=== PATIENT | female | born 1965 | race Caucasian/White ===

== ENCOUNTER 2020-07-09 11:59 | Inpatient (IN) | payer MEDICARE, MEDICAID, SELFPAY ==
[2020-07-09] VITALS (19 sets, daily range): BP systolic 120–139; BP diastolic 64–86; PULSE 71–107; RESP 16–28; TEMP 36.5–36.6; O2SAT 95–100
--- NOTE | ~2020-07-09 | XR_ITS ---
EXAMINATION: XR chest 1V portable DATE: 07/09/2020 13:10 INDICATION: Shortness of breath. Wheezing. TECHNIQUE: A single frontal view of the chest was obtained. COMPARISON: None. FINDINGS: There are airspace opacities in the peripheral mid and lower lung zones. No pleural effusio n or pneumothorax. Cardiomegaly is noted. IMPRESSION: 1. Airspace opacities in the peripheral mid and lower lung zones, consistent with pneumonia. 2. Cardiomegaly. Reviewed, dictated and finalized at location A. SS SPECIALIST IMPRESSION: 1. Airspace opacities in the peripheral mid and lower lung zones, consistent wi th pneumonia. 2. Cardiomegaly.
--- NOTE | ~2020-07-09 | US_ITS ---
EXAMINATION: US venous doppler [facility] DATE: 07/10/2020 08:40 INDICATION: Lower limb pain. TECHNIQUE: Grayscale ultrasound images without and with compression and Doppler ultrasound images of the bilateral lower extremity veins were obtained. COMPARISON: None. FINDINGS: The visualized portions of right common femoral vein, profunda (deep) femoral vein, femoral vein, pop liteal vein, peroneal veins, posterior tibial veins, and greater saphenous vein outflow are patent. The visualized portions of left common femoral vein, profunda femoral vein, femoral vein, popliteal v ein, peroneal veins, posterior tibial veins, and greater saphenous vein outflow are patent. IMPRESSION: 1. No deep venous thrombosis. Reviewed, dictated and finalized at location A. IAGE OPERATOR
--- NOTE | 2020-07-09 12:40 | ECG_ITS ---
Measurements Intervals [place] Rate: 77 P: 31 CO: 167 QRS: -17 QRSD: 91 T: 32 QT: 365 QTc: 414 Interpretive Statements SINUS RHYTHM VOLTAGE CRITERIA FOR LVH BASELINE ARTIFACT- I, II, AVR, AVL, AVF BORDERLINE ECG Electronically Signed On 07-09-2020 13:10:45 [employer]ERMENTING CELLAR [employer]OPPER by Randy Rosenthal D.O.
--- NOTE | 2020-07-09 12:42 | ED.SOB ---
HPI - SOB/Dyspnea General Chief Complaint: Shortness of Breath/Dyspnea Stated Complaint: SOB, ?COVID EXPOSURE Time Seen by Provider: 07/09/20 12:18 Source: patient Mode of arrival: ambulatory Limitations: no limitations History of Present Illness HPI Narrative: PAtient is a 55 year old female with history of asthma and hypertension who presents for evaluation of shortness of breath. She states starting 07/03/20 she developed URI symptoms. She is having sinus congestion and cough. She started having worsening shortness of breath, cough, and midchest tightness 3 days. She reports her chest tightness is constant and it is getting worse daily. She denies fever or chills. She denies vomiting or diarrhea. She reports her is sick with URI symptoms and he was tested for covid yesterday. His results are unknown at this time. She has been using her albuterol nebulizer every few hours , and she reports improvement of her symptoms. She spoke with her synthetic resin operator who referred her to to get evaluated. Related Data Home Medications Medication Instructions Recorded Confirmed albuterol sulfate 2.5 mg INHALATION PRN PRN 07/09/20 07/09/20 amlodipine 10 mg PO DAILY 07/09/20 07/09/20 baclofen 10 mg PO TID 07/09/20 07/09/20 budesonide-formoterol [Symbicort] 2 puff INHALATION PRN PRN 07/09/20 07/09/20 fluticasone propionate 50 mcg INTRANASAL PRN PRN 07/09/20 07/09/20 gabapentin 300 mg PO BID 07/09/20 07/09/20 hydrochlorothiazide 25 mg PO DAILY 07/09/20 07/09/20 multivitamin 1 tablet PO DAILY 07/09/20 07/09/20 naproxen 1,000 mg PO BID 07/09/20 07/09/20 omeprazole 20 mg PO DAILY 07/09/20 07/09/20 ropinirole 1 mg PO BID 07/09/20 07/09/20 simvastatin 40 mg PO DAILY 07/09/20 07/09/20 tiotropium bromide [Spiriva 2 puff INHALATION PRN PRN 07/09/20 07/09/20 Respimat] venlafaxine 150 mg PO BID 07/09/20 07/09/20 Allergies Allergy/AdvReac Type Severity Reaction Status Date / Time No Known Allergies Allergy Verified 07/09/20 17:12 Review of Systems Review of Systems: All systems reviewed & are unremarkable except as noted in HPI and below PMFSH Past Medical History Medical History (Updated 07/09/20 @ 17:56 by Raven Dias MD) Anxiety Asthma Hypertension Surgical History Surgical History (Updated 07/09/20 @ 12:46 by Raven Dias MD) No pertinent past surgical history Social History Social History (Updated 07/09/20 @ 12:47 by Raven Dias MD) Smoking status: Former smoker Alcohol intake: never Substance use: never Gender identity (if verbalized by the patient): Female Exam Const: General: alert and ill appearing Orientation/consciousness: patient oriented x3 Eyes: EOM: EOMs intact bilaterally Chest: Chest palpation & inspection: normal inspection of the chest Resp: Effort & Inspection: tachypneic and no use of accessory muscles Auscultation: wheezes Cardio: Rate: regular rate Rhythm: regular rhythm Heart sounds: no murmurs GI: GI Palp: Yes Soft to palpation, No Tenderness to palpation present (GI) and No Guarding due to palpation present (GI) Skin: General skin exam: normal color Rashes: no rashes Neuro: General: patient oriented x3 and moves all extremities Course Reevaluation(s) Reevaluation #1: She reported she felt better so I got patient up to check her ambulatory oxygenations. although her oxygen maintained 95% . she was tachypneic and wheezing upon standing. Date: 07/09/20 Time: 14:00 Consultations Consultation #1: I discussed case with Aida Cross. She accepts patient to hospitalist service. Date: 07/09/20 Time: 14:25 Vital Signs Vital signs: Vital Signs Pulse Rate 89 07/09/20 12:11 Respiratory Rate 19 07/09/20 12:11 Blood Pressure 130/79 07/09/20 12:11 Pulse Oximetry 100 07/09/20 12:11 Temperature 97.9 F 07/09/20 17:00 Pulse Rate 87 07/09/20 17:00 Respiratory Rate 22 H 07/09/20 17:00 Blood Pressure 129/69 07/09/20 1
[2020-07-09 13:00] LABS: Basophils Percent Auto 0.3 % (0.2-1.2); Hematocrit 40.5 % (37.0-47.0); Hemoglobin 13.5 g/dL (12.0-15.0); Immature Granulocyte Absolute 0.06 K/mm3 (0.00-0.031); Immature Granulocyte Percent A 0.9 % (0-0.5); Lymphocytes Absolute Auto 2.05 K/mm3 (0.9-3.2); Lymphocytes Percent Auto 29.5 % (18.3-44.2); Mean Corpuscular HGB Conc 33.3 g/dl (32-36); Mean Corpuscular Hemoglobin 29.3 pg (26-34); Mean Corpuscular Volume 87.9 fl (80-100); Mean Platelet Volume 10.8 fl (7.4-10.4); Monocytes Absolute Auto 0.4 K/mm3 (0.1-0.6); Monocytes Percent Auto 6.2 % (2.6-8.5); Neutrophils Absolute Auto 4.4 K/mm3 (1.3-6.7); Neutrophils Percent Auto 63.1 % (45.5-73.1); Platelet Count Result 269 k/mm3 (150-375); Red Blood Count 4.61 M/mm3 (4.2-5.4); Red Cell Distribution Width 13.4 % (11.5-14.5)
[2020-07-09] MEDS: methylPREDNISolone SOD SUCC 125 MG VIAL IV PUSH (13:10)
[2020-07-09 13:18] LABS: Alanine Aminotransferase 23 U/L (4-35); Albumin Level 3.7 g/dL (3.5-5.1); Alkaline Phosphatase 104 U/L (38-126); Anion Gap 6 mmol/L (8-16); Aspartate Amino Transferase 22 U/L (14-36); Bilirubin,Total 0.5 mg/dL (0.2-1.3); Blood Urea Nitrogen 18 mg/dL (7-17); Calcium 8.8 mg/dL (8.4-10.2); Carbon Dioxide 29 mmol/L (22-30); Chloride 108 mmol/L (98-107); Estimated CRCL calculation 108 ml/min; Estimated Glomerular Filt Rate > 60; Glucose 98 mg/dL (65-105); Potassium 3.8 mmol/L (3.4-5.0); Sodium 143 mmol/L (137-145)
[2020-07-09 13:19] LABS: INR 0.9; Prothrombin Time 12.7 Seconds (11.1-14.7)
[2020-07-09 13:22] LABS: Partial Thromboplastin Time 24.1 SECONDS (22.3-36.8)
[2020-07-09 13:27] LABS: D Dimer 0.38 ug/mL (<0.48)
[2020-07-09] MEDS: ALBUTEROL SULFATE (*SP) AEROSOL 1 PUFF 8 PUFF INHALATION ×3 (13:29→20:35)
[2020-07-09 13:30] LABS: NT Pro B Type Natriuretic Pept 51 PG/ML (5-100); Troponin I < 0.012 ng/mL (0.000-0.034)
[2020-07-09 13:47] LABS: Alveolar/Arterial O2 Gradient 31.2 mmHg; Base Excess ABG 0.4 mEq/l (+/-2.0); Carboxyhemoglobin 0.3 % THb (0-2.0); Fractional Inspired Oxygen 21 %; HCO3 ABG 24.1 mEq/l (22.0-26.0); Methemoglobin ABG 0.3 %THb (0-1.5); Oxygen Content ABG 18.5 %vol (16.0-22.0); Oxygen Saturation ABG 95.7 % (95.0-100.0); Oxyhemoglobin 94.3 % THb (90.0-100.0); PO2 ABG 75.4 mmHg (80.0-100.0); PO2 FiO2 Ratio Arterial Blood 3.59 %; Reduced Hemoglobin 5.1 %THb (0-5.0); Total Hemoglobin 13.9 g/dL (12.0-18.0); pH ABG 7.444 (7.350-7.450)
[2020-07-09 13:53] LABS: Site Drawn RIGHT RADIAL
[2020-07-09 13:54] LABS: Device ROOM AIR; Modified Allen's Test Pass
--- NOTE | 2020-07-09 14:30 | PC.NURSE ---
Pt ambulatory with Dr. Dias in department. Per Dr. Dias, pt's pulse oximetry stayed wnl, however, pt's began to have audible wheezing again.
--- NOTE | 2020-07-09 15:45 | PC.NURSE ---
Blood cultures collected from two different sites and sent to lab. IV abx initiated as ordered.
--- NOTE | 2020-07-09 16:13 | PC.NURSE ---
Call to 3rd med/surg, unable to take report at this time.
[2020-07-09] MEDS: methylPREDNISolone SOD SUCC 125 MG VIAL 60 MG IV PUSH ×2 (18:07→23:24)
--- NOTE | 2020-07-09 18:42 | ADMGEN ---
This patient, Anne Marie Pena, was admitted to [facility] Surg Room 330-01 on 07/09/20 @ 1640. Patient/family oriented to hospital policies and general routines including ID bracelet, bed and alarms, visiting hours, pain management, procedures, bathroom and other care routines, personal items, smoking policy, room service/diet, and visiting hours. Information on how to activate the Rapid Response Team has been discussed. Patient/Family are encouraged to report perceived risks to care and to ask questions if they do not understand what they are told or what they should do.
[2020-07-09 20:32] LABS: SARS-CoV-2 RNA PCR Positive
--- NOTE | 2020-07-09 23:48 | PM.IMHP ---
H&P: HPI History of Present Illness Date/Time: 07/09/20 23:48 Chief Complaint: Shortness of breath Narrative: Anne Marie Pena is a 55 year old female who has a history of asthma. Her has been coughing at home and he was suspected to have COVID. He finally got his test back today and he was positive. The patient was also tested here today and was positive. The patient has a nebulizer machine at home that she has been using without relief. The patient stated she had upper respiratory symptoms that started on 07/03/2020. She had sinus congestion and cough. She has been having worsening shortness of breath, cough, and mid chest tightness for 3 days. She called her primary care doctor who told her to go to urgent care. She went to urgent care in the center here. The patient was not hypoxic and she was not requiring any oxygen. The patient was swabbed in the emergency room and when she came up to medical-surgical floor she was found to be positive. She was given inhalers in the emergency room and started on Solu-Medrol. It was felt that this was the asthma exacerbation. In the peripheral mid and lower lung zones, consistent with pneumonia. Cardiomegaly. Given azithromycin and Rocephin. She was given a large dose of Solu-Medrol as well. The patient is being admitted for observation on the date of service of 07/09/2020 Review of Systems Review of Systems: All systems reviewed & are unremarkable except as noted in HPI and below Constitutional: Constitutional: Reports as per HPI and Reports no additional constitutional complaints Eyes: Eyes: Reports as per HPI and Reports no additional eye complaints ENT: Reports system reviewed and no additional complaints, except as documented and Reports Normal hearing present Cardiovascular: Cardiovascular: Reports no additional cardiovascular complaints Respiratory: Respiratory: Reports no additional respiratory complaints and Reports no additional respiratory complaints Gastrointestinal: Gastrointestinal: Reports as per HPI and Reports no additional gastrointestinal complaints Musculoskeletal: Musculoskeletal: Reports no additional musculoskeletal complaints Integumentary/Breasts: Skin/Breast: Reports system reviewed and no additional complaints, except as docu and Reports as per HPI Neurologic: Reports system reviewed and no additional complaints, except as documented, Reports as per HPI and Reports Normal hearing present Psychiatric: Psychiatric: Reports no additional psychiatric complaints and Reports as per HPI Endocrine: Endocrine: Reports no additional endocrine complaints Hematologic/Lymphatic: Hematologic/Lymphatic: Reports no additional hematologic/lymphatic complaints Allergic/Immunologic: Allergic/Immunologic: Reports no additional allergic/immunologic complaints [facility] Past Medical History Medical History (Updated 07/10/20 @ 00:04 by Aida Cross NP) Anxiety Asthma Chronic pain Bilateral knee pain HTN (hypertension) with goal to be determined Hyperlipidemia Hypertension Surgical History Surgical History (Updated 07/09/20 @ 12:46 by Raven Dias MD) No pertinent past surgical history Family History Family History (Updated 07/09/20 @ 23:57 by Aida Cross NP) Father Emphysema lung Mother Alzheimer's dementia Asthma Social History Social History (Updated 07/09/20 @ 12:47 by Raven Dias MD) Smoking status: Former smoker Alcohol intake: never Substance use: never Substance use type: does not use Gender identity (if verbalized by the patient): Female Spiritual care concerns: No Meds Home Medications and Allergies Home Medications Medication Instructions Recorded Confirmed Type albuterol sulfate 2.5 mg INHALATION PRN PRN 07/09/20 07/09/20 History amlodipine 10 mg PO DAILY 07/09/20 07/09/20 History aspirin 81 mg PO DAILY 07/09/20 07/09/20 History baclofen 10 mg PO TID 07/09/20 07/09/20 History lucila
[2020-07-10] VITALS (7 sets, daily range): BP systolic 118–156; BP diastolic 49–60; PULSE 88–100; RESP 18–20; TEMP 36.3–36.9; O2SAT 92–97
[2020-07-10] MEDS: ALBUTEROL SULFATE (*SP) INHALER 2 PUFF INHALATION ×6 (02:24→23:50)
[2020-07-10] MEDS: methylPREDNISolone SOD SUCC 125 MG VIAL 60 MG IV PUSH ×3 (05:43→23:50)
[2020-07-10 06:19] LABS: Basophils Percent Auto 0.2 % (0.2-1.2); Hematocrit 40.6 % (37.0-47.0); Hemoglobin 13.1 g/dL (12.0-15.0); Immature Granulocyte Absolute 0.21 K/mm3 (0.00-0.031); Immature Granulocyte Percent A 1.9 % (0-0.5); Lymphocytes Absolute Auto 1.48 K/mm3 (0.9-3.2); Lymphocytes Percent Auto 13.6 % (18.3-44.2); Mean Corpuscular HGB Conc 32.3 g/dl (32-36); Mean Corpuscular Hemoglobin 28.9 pg (26-34); Mean Corpuscular Volume 89.4 fl (80-100); Mean Platelet Volume 10.9 fl (7.4-10.4); Monocytes Absolute Auto 0.3 K/mm3 (0.1-0.6); Monocytes Percent Auto 2.5 % (2.6-8.5); Neutrophils Absolute Auto 8.9 K/mm3 (1.3-6.7); Neutrophils Percent Auto 81.8 % (45.5-73.1); Platelet Count Result 273 k/mm3 (150-375); Red Blood Count 4.54 M/mm3 (4.2-5.4); Red Cell Distribution Width 13.7 % (11.5-14.5); White Blood Count 10.9 K/mm3 (4.5-10.0)
[2020-07-10 06:31] LABS: Alanine Aminotransferase 24 U/L (4-35); Albumin Level 3.5 g/dL (3.5-5.1); Alkaline Phosphatase 94 U/L (38-126); Anion Gap 7 mmol/L (8-16); Aspartate Amino Transferase 23 U/L (14-36); Bilirubin,Total 0.3 mg/dL (0.2-1.3); Blood Urea Nitrogen 24 mg/dL (7-17); Calcium 9.2 mg/dL (8.4-10.2); Carbon Dioxide 25 mmol/L (22-30); Chloride 109 mmol/L (98-107); Estimated CRCL calculation 94 ml/min; Estimated Glomerular Filt Rate > 60; Glucose 153 mg/dL (65-105); Potassium 3.3 mmol/L (3.4-5.0); Sodium 141 mmol/L (137-145)
[2020-07-10 08:30] LABS: Magnesium 2.1 mg/dL (1.6-2.3)
[2020-07-10] MEDS: POTASSIUM CHLORIDE 20 MEQ TABLET 40 MEQ PO (08:30)
[2020-07-10] MEDS: VENLAFAXINE HCL XR 75 MG CAP.ER.24H 150 MG PO ×2 (08:31→16:43)
[2020-07-10 08:32] LABS: CRP 1.6 mg/dL (<1.0); Lactate Dehydrogenase 601 U/L (313-618)
[2020-07-10] MEDS: ENOXAPARIN 40 MG/0.4 ML SYRINGE SUB-Q ×2 (08:32→21:29)
[2020-07-10] MEDS: GABAPENTIN 300 MG CAPSULE PO ×2 (08:32→16:43)
[2020-07-10] MEDS: ASPIRIN 81 MG ENTERIC TABLET PO (08:32)
[2020-07-10] MEDS: amLODIPine BESYLATE 5 MG TABLET 10 MG PO (08:32)
[2020-07-10] MEDS: BACLOFEN 10 MG TABLET PO ×3 (08:32→16:43)
[2020-07-10] MEDS: PANTOPRAZOLE SOD SESQUIHYDRATE 20 MG TAB PO (08:33)
[2020-07-10] MEDS: rOPINIRole HCL 1 MG TABLET PO ×2 (08:33→16:43)
[2020-07-10] MEDS: hydroCHLOROthiazide 25 MG TABLET PO (08:33)
[2020-07-10] MEDS: MULTIVITAMINS THERAPEUTIC TAB (*BKC) 1 TABLET PO (08:33)
[2020-07-10] MEDS: DEXAMETHASONE SOD PHOS INJ 4 MG/ML VIAL 6 MG IV PUSH (09:42)
--- NOTE | 2020-07-10 15:05 | PM.IMPN ---
Progress Note: A&P Assessment and Plan (1) Asthma with exacerbation: Code(s): J45.901 - Unspecified asthma with (acute) exacerbation Status: Acute Assessment and Plan: Patient with COVID as well as underlying asthma now with increased chest tightness and wheezing. She had no relief at home with her nebs, inhalers or oral prednisone she had taken. She is feeling slightly better today with her breathing, tightness and wheezing. Will continue her IV Solu-Medrol, inhalers q.4 hours, incentive spirometer. I discussed the case with pulmonology, Dr. Daugherty who recommended the above treatment. He will not be consulted at this time unless something changes I appreciate his input on the case. Continue monitoring (2) Pneumonia due to COVID-19 virus: Code(s): U07.1 - COVID-19; J12.82 - Pneumonia due to coronavirus disease 2019 Status: Acute Assessment and Plan: She reports symptoms starting 06/29/20 with headache and congestion. Patient became positive for COVID-19 and chest x-ray showing pneumonia. IV antibiotics were discontinued Since she is not requiring any oxygen at this time we will continue IV Solu-Medrol 60 mg q.6 hours, albuterol inhaler q.4 hours P.r.n. Robitussin. Incentive spirometer. Will start continuous pulse ox initially comes hypoxic and requiring oxygen then we will need to switch her medications around Continue monitoring (3) Restless leg syndrome: Code(s): G25.81 - Restless legs syndrome Status: Chronic Assessment and Plan: Continue gabapentin. Continues ropinirole (4) HTN (hypertension) with goal to be determined: Code(s): I10 - Essential (primary) hypertension Status: Chronic Assessment and Plan: Blood pressure is slightly elevated 156/60 this morning. Continue with amlodipine. Continue monitoring BP daily and make adjustments if necessary. (5) Hyperlipidemia: Code(s): E78.5 - Hyperlipidemia, unspecified Status: Chronic Assessment and Plan: Hold simvastatin Time Spent With Patient Time with patient: 25 - 35 minutes Subjective Date/time seen: 07/10/20 15:05 Interval history: Date of service 07/10/2020: She reports feeling some improvement since arrival. She reports improved wheezing and chest tightness but it is still present. She does have dyspnea with exertion but denies much dyspnea at rest. She does have some improvement with using her albuterol inhaler with her breathing as well as with the IV steroids. She has a slight cough with white sputum. She denies any fevers, chills, chest pain, nausea, vomiting, abdominal pain, lack of taste, lack of smell, leg swelling, calf pain or any other symptoms at this time. Review of Systems Review of Systems: All systems reviewed & are unremarkable except as noted in HPI and below Exam Narrative: Exam Narrative: General: 55-year-old woman sitting up in bed on the phone. Appears comfortable, can audibly hear wheezing and she is slightly tachypneic and dyspneic with talking. In no acute respiratory distress. Skin: No jaundice or cyanosis. Good skin turgor. Neck: Full range of motion. Supple. Respiratory: Diffuse wheezing throughout all lung tong, end expiration snoring. No bony chest wall tenderness. Cardiovascular: The heart has a regular rate and rhythm without murmur. Lower extremities: No lower extremity edema. Distal pulses are easily palpated. No calf tenderness to palpation. Gastrointestinal: The abdomen is soft, nontender and nondistended with active bowel sounds. Psychiatric: Lucid and oriented. Memory intact. Neurologic: No focal deficits. Speech is clear. No facial drooping. Objective Data Vital Signs Vital Si
[2020-07-10] MEDS: ACETAMINOPHEN 325 MG TABLET 650 MG PO ×2 (16:42→21:37)
--- NOTE | 2020-07-10 17:31 | PC.NURSE ---
pt placed on continuous pulse ox , 93 % R/A
[2020-07-11] VITALS: BP 114/59; PULSE 97; RESP 20; TEMP 36.4; O2SAT 92
[2020-07-11 04:00] VITALS: BP 113/65; PULSE 88; RESP 20; TEMP 36.2; O2SAT 97
[2020-07-11] MEDS: methylPREDNISolone SOD SUCC 125 MG VIAL 60 MG IV PUSH ×4 (05:11→23:58)
[2020-07-11] MEDS: ALBUTEROL SULFATE (*SP) INHALER 2 PUFF INHALATION ×6 (05:11→23:58)
[2020-07-11 06:37] LABS: Hematocrit 37.8 % (37.0-47.0); Hemoglobin 12.2 g/dL (12.0-15.0); Mean Corpuscular HGB Conc 32.3 g/dl (32-36); Mean Corpuscular Hemoglobin 28.4 pg (26-34); Mean Corpuscular Volume 87.9 fl (80-100); Mean Platelet Volume 11.2 fl (7.4-10.4); Platelet Count Result 329 k/mm3 (150-375); Red Cell Distribution Width 13.8 % (11.5-14.5); White Blood Count 23.7 K/mm3 (4.5-10.0)
[2020-07-11 07:12] LABS: Alanine Aminotransferase 24 U/L (4-35); Albumin Level 3.5 g/dL (3.5-5.1); Alkaline Phosphatase 89 U/L (38-126); Anion Gap 7 mmol/L (8-16); Aspartate Amino Transferase 24 U/L (14-36); Bilirubin,Total 0.3 mg/dL (0.2-1.3); Blood Urea Nitrogen 35 mg/dL (7-17); CRP 0.9 mg/dL (<1.0); Calcium 9.1 mg/dL (8.4-10.2); Carbon Dioxide 26 mmol/L (22-30); Chloride 109 mmol/L (98-107); Estimated CRCL calculation 75 ml/min; Estimated Glomerular Filt Rate > 60; Glucose 158 mg/dL (65-105); Lactate Dehydrogenase 521 U/L (313-618); Magnesium 2.2 mg/dL (1.6-2.3); Phosphorus 4.2 mg/dL (2.5-4.5); Potassium 3.5 mmol/L (3.4-5.0); Sodium 142 mmol/L (137-145)
[2020-07-11 08:00] VITALS: BP 123/64; PULSE 81; RESP 16; TEMP 36.6; O2SAT 95
[2020-07-11 08:06] LABS: Thyroid Stimulating Hormone Reflex 0.108 uIU/mL (0.465-4.68)
[2020-07-11 09:37] LABS: Free T4 Free Thyroxine Reflex 1.02 ng/dL (0.78-2.19)
[2020-07-11] MEDS: ENOXAPARIN 40 MG/0.4 ML SYRINGE SUB-Q ×2 (09:55→20:42)
[2020-07-11] MEDS: hydroCHLOROthiazide 25 MG TABLET PO (09:57)
[2020-07-11] MEDS: amLODIPine BESYLATE 5 MG TABLET 10 MG PO (09:57)
[2020-07-11] MEDS: PANTOPRAZOLE SOD SESQUIHYDRATE 20 MG TAB PO (09:57)
[2020-07-11] MEDS: VENLAFAXINE HCL XR 75 MG CAP.ER.24H 150 MG PO ×2 (09:58→17:17)
[2020-07-11] MEDS: MULTIVITAMINS THERAPEUTIC TAB (*BKC) 1 TABLET PO (09:59)
[2020-07-11] MEDS: BACLOFEN 10 MG TABLET PO ×3 (09:59→17:15)
[2020-07-11] MEDS: GABAPENTIN 300 MG CAPSULE PO ×2 (09:59→17:14)
[2020-07-11] MEDS: rOPINIRole HCL 1 MG TABLET PO ×2 (09:59→17:17)
[2020-07-11] MEDS: ASPIRIN 81 MG ENTERIC TABLET PO (09:59)
[2020-07-11] MEDS: guaiFENesin/DEXTROMETHORPHAN 10 ML UDC PO (10:01)
[2020-07-11 12:00] VITALS: BP 139/67; PULSE 89; RESP 18; TEMP 36.3; O2SAT 97
[2020-07-11 14:56] LABS: Total Triiodothyronine (T3) 1.53 NG/ML (0.97-1.69)
[2020-07-11 16:00] VITALS: BP 110/59; PULSE 103; RESP 16; TEMP 36.4; O2SAT 95
[2020-07-11 20:00] VITALS: BP 130/78; PULSE 93; RESP 18; TEMP 36.6; O2SAT 96
--- NOTE | 2020-07-11 22:14 | PM.IMPN ---
Progress Note: A&P Assessment and Plan (1) Asthma with exacerbation: Code(s): J45.901 - Unspecified asthma with (acute) exacerbation Status: Acute Assessment and Plan: Patient with COVID as well as underlying asthma now with increased chest tightness and wheezing. She had no relief at home with her nebs, inhalers or oral prednisone she had taken. She is feeling slightly better today with her breathing, tightness and wheezing. Will continue her IV Solu-Medrol 60 mg Q6hr, inhalers q.4 hours, incentive spirometer. I discussed the case with pulmonology, Dr. Daugherty who recommended the above treatment. He will not be consulted at this time unless something changes I appreciate his input on the case. Continue monitoring (2) Pneumonia due to COVID-19 virus: Code(s): U07.1 - COVID-19; J12.82 - Pneumonia due to coronavirus disease 2018 Status: Acute Assessment and Plan: She reports symptoms starting 06/29/20 with headache and congestion. Patient became positive for COVID-19 and chest x-ray showing pneumonia. IV antibiotics were discontinued Since she is not requiring any oxygen at this time we will continue IV Solu-Medrol 60 mg q.6 hours, albuterol inhaler q.4 hours P.r.n. Robitussin. Incentive spirometer. Will start continuous pulse ox initially comes hypoxic and requiring oxygen then we will need to switch her medications around Continue monitoring (3) Restless leg syndrome: Code(s): G25.81 - Restless legs syndrome Status: Chronic Assessment and Plan: Continue gabapentin. Continues ropinirole (4) HTN (hypertension) with goal to be determined: Code(s): I10 - Essential (primary) hypertension Status: Chronic Assessment and Plan: Blood pressure is slightly elevated this morning. Continue with amlodipine. Continue monitoring BP daily and make adjustments if necessary. (5) Hyperlipidemia: Code(s): E78.5 - Hyperlipidemia, unspecified Status: Chronic Assessment and Plan: Hold simvastatin Time Spent With Patient Time with patient: 25 - 35 minutes Subjective Date/time seen: 07/11/20 22:14 Interval history: Date of service 07/11/2020: She reports feeling some improvement since arrival. She reports improved wheezing and chest tightness but it is still present. She has some relief with IV Solumedrol and inhalers. She does have dyspnea with exertion but denies much dyspnea at rest. She has a slight cough with white sputum. She denies any fevers, chills, chest pain, nausea, vomiting, abdominal pain, lack of taste, lack of smell, leg swelling, calf pain or any other symptoms at this time. Review of Systems Review of Systems: All systems reviewed & are unremarkable except as noted in HPI and below Exam Narrative: Exam Narrative: General: 55-year-old woman sitting up in bed on the phone. Appears comfortable, can hear slight audible wheezing. In no acute respiratory distress. Skin: No jaundice or cyanosis. Good skin turgor. Neck: Full range of motion. Supple. Respiratory: Diffuse wheezing throughout all lung tong, end expiration . No bony chest wall tenderness. Cardiovascular: The heart has a regular rate and rhythm without murmur. Lower extremities: No lower extremity edema. Distal pulses are easily palpated. No calf tenderness to palpation. Gastrointestinal: The abdomen is soft, nontender and nondistended with active bowel sounds. Psychiatric: Lucid and oriented. Memory intact. Neurologic: No focal deficits. Speech is clear. No facial drooping. Objective Data Vital Signs Vital Signs: Vital Signs - 24 hr 07/11/20 00:00 07/11/20 04:00 07/11/20 08:00 Temperature 97.5 F L 97.2 F L 97.9 F
--- NOTE | 2020-07-11 22:51 | PC.NURSE ---
[address] ADAMS. PT ON CONTINUOUS PULDE OX. CONSISTENTLY IN THE HIGH 90'S ON ROOM AIR. 95-97%. AFTER EXERTION SATS DECLINED TO 93%. NO ALARMS DURING THE DAY SHIFT. CONTINUOUS PULSE OX DISCONTINUED.
[2020-07-12] VITALS (7 sets, daily range): BP systolic 107–136; BP diastolic 56–75; PULSE 70–94; RESP 16–20; TEMP 36.6–37.2; O2SAT 94–100
[2020-07-12] MEDS: ALBUTEROL SULFATE (*SP) INHALER 2 PUFF INHALATION ×6 (03:48→23:36)
[2020-07-12] MEDS: methylPREDNISolone SOD SUCC 125 MG VIAL 60 MG IV PUSH ×4 (06:03→23:36)
[2020-07-12] MEDS: ENOXAPARIN 40 MG/0.4 ML SYRINGE SUB-Q ×2 (09:04→21:04)
[2020-07-12] MEDS: VENLAFAXINE HCL XR 75 MG CAP.ER.24H 150 MG PO ×2 (09:42→17:15)
[2020-07-12] MEDS: GABAPENTIN 300 MG CAPSULE PO ×2 (09:43→17:15)
[2020-07-12] MEDS: amLODIPine BESYLATE 5 MG TABLET 10 MG PO (09:43)
[2020-07-12] MEDS: rOPINIRole HCL 1 MG TABLET PO ×2 (09:43→17:16)
[2020-07-12] MEDS: ASPIRIN 81 MG ENTERIC TABLET PO (09:43)
[2020-07-12] MEDS: hydroCHLOROthiazide 25 MG TABLET PO (09:43)
[2020-07-12] MEDS: MULTIVITAMINS THERAPEUTIC TAB (*BKC) 1 TABLET PO (09:43)
[2020-07-12] MEDS: BACLOFEN 10 MG TABLET PO ×3 (09:43→17:15)
[2020-07-12] MEDS: PANTOPRAZOLE SOD SESQUIHYDRATE 20 MG TAB PO (09:43)
--- NOTE | 2020-07-12 15:15 | PM.IMPN ---
Progress Note: A&P Assessment and Plan (1) Asthma with exacerbation: Code(s): J45.901 - Unspecified asthma with (acute) exacerbation Status: Acute Assessment and Plan: COVID-19 with asthma with asthma exacerbation now on room air continue steroids bronchodilators (2) Pneumonia due to COVID-19 virus: Code(s): U07.1 - COVID-19; J12.82 - Pneumonia due to coronavirus disease 2018 Status: Acute Assessment and Plan: initial symptoms June 29 with headache and congestion July 13 will be 14 days since symptom onset, so likely could discontinue droplet isolation then (3) Restless leg syndrome: Code(s): G25.81 - Restless legs syndrome Status: Chronic Assessment and Plan: Continue gabapentin. Continue ropinirole (4) HTN (hypertension) with goal to be determined: Code(s): I10 - Essential (primary) hypertension Status: Chronic Assessment and Plan: continue amlodipine and monitor (5) Hyperlipidemia: Code(s): E78.5 - Hyperlipidemia, unspecified Status: Chronic Assessment and Plan: Holding simvastatin Subjective Date/time seen: 07/12/20 15:15 Interval history: Admitted 2/3 with asthma and COVID-19. 2/6: Feeling much better. Still with bothersome dry cough, some wheezes. Denied pain. Appetite good. Review of Systems Review of Systems: All systems reviewed & are unremarkable except as noted in HPI and below Exam Narrative: Exam Narrative: HEENT: PERRL, sclerae nonicteric, pharyngeal mucosa pink and intact NECK: No JVD CHEST: Scattered expiratory wheezes worst left lower lobe HEART: NL S1/S2, regular, no murmur ABDOMEN: BS+, soft, nontender, no mass, no bruits EXTREMITIES: No cyanosis, edema, or clubbing NEUROLOGIC: CN intact and symmetric to inspection. MUSCULOSKELETAL: Tone and strength symmetric. PSYCH: Alert. Oriented to person, place, and time. Objective Data Vital Signs Vital Signs: Vital Signs - 24 hr 07/11/20 16:00 07/11/20 20:00 07/12/20 00:00 Temperature 97.6 F 97.8 F 98.9 F Pulse Rate 103 H 93 88 Respiratory Rate 16 18 16 Blood Pressure 110/59 L 130/78 132/70 Pulse Oximetry 95 96 95 07/12/20 04:00 07/12/20 08:00 07/12/20 12:00 Temperature 98 F 98.2 F 98.2 F Pulse Rate 80 70 94 Respiratory Rate 18 18 20 Blood Pressure 112/66 115/57 L 121/56 L Pulse Oximetry 97 96 100 07/12/20 13:20 Temperature Pulse Rate Respiratory Rate Blood Pressure Pulse Oximetry 96 Intake/Output Intake/Output: Intake & Output 07/09/20 07/10/20 07/11/20 07/12/20 23:59 23:59 23:59 23:59 Intake Total 300 2140 2030 390 Output Total 1300 800 Balance 618 850 1751 390 Meds/Results Medications: Active Medications Generic Name Dose Route Start Last Admin Trade Name Freq PRN Reason Stop Dose Admin Acetaminophen 650 mg 07/10/20 16:12 07/10/20 21:37 Acetaminophen 325 Mg Tablet PO 650 mg Q4H PRN Administration Mild Pain (1-3) or Fever Albuterol 2 puff 07/10/20 16:00 07/12/20 12:23 Albuterol Sulfate (*Sp) Inhaler INHALATION 2 puff Q4HRT PA Administration Amlodipine Besylate 10 mg 07/10/20 09:00 07/12/20 09:43 Amlodipine Besylate 5 Mg Tablet PO 10 mg DAILY PA Administration Aspirin 81 mg 07/10/20 09:00 07/12/20 09:43 Aspirin 81 Mg Enteric Tablet PO 81 mg QAM PA Administration Baclofen 10 mg 07/10/20 09:00 07/12/20 12:24 Baclofen 10 Mg Tablet PO 10 mg TID PA Administration Budesonide/Formoterol Fumarate 2 puff 07/10/20 08:00 07/12/20 09:07 Budesonide/Form 160-4.5 Mcg (*Sp) INHALATION 2 puff Q12HRT PA Administration Enoxaparin Sodium 40 mg 07/10/20 09:00 07/12/20 09:04 Enoxaparin 40
[2020-07-12] MEDS: guaiFENesin/DEXTROMETHORPHAN 10 ML UDC PO (17:14)
[2020-07-13] VITALS: BP 124/67; PULSE 93; RESP 16; TEMP 36.6; O2SAT 97
[2020-07-13 04:00] VITALS: BP 128/84; PULSE 100; RESP 18; TEMP 36.8; O2SAT 98
[2020-07-13] MEDS: ALBUTEROL SULFATE (*SP) INHALER 2 PUFF INHALATION ×5 (04:00→20:38)
[2020-07-13] MEDS: methylPREDNISolone SOD SUCC 125 MG VIAL 60 MG IV PUSH (05:13)
[2020-07-13 06:39] LABS: Hematocrit 38.9 % (37.0-47.0); Hemoglobin 12.4 g/dL (12.0-15.0); Mean Corpuscular HGB Conc 31.9 g/dl (32-36); Mean Corpuscular Hemoglobin 28.4 pg (26-34); Mean Corpuscular Volume 89.2 fl (80-100); Mean Platelet Volume 11.1 fl (7.4-10.4); Platelet Count Result 317 k/mm3 (150-375); Red Blood Count 4.36 M/mm3 (4.2-5.4); Red Cell Distribution Width 13.9 % (11.5-14.5); White Blood Count 14.6 K/mm3 (4.5-10.0)
[2020-07-13 06:52] LABS: Anion Gap 7 mmol/L (8-16); Blood Urea Nitrogen 30 mg/dL (7-17); Calcium 8.2 mg/dL (8.4-10.2); Carbon Dioxide 26 mmol/L (22-30); Chloride 107 mmol/L (98-107); Estimated CRCL calculation 94 ml/min; Estimated Glomerular Filt Rate > 60; Glucose 165 mg/dL (65-105); Potassium 3.4 mmol/L (3.4-5.0); Sodium 140 mmol/L (137-145)
[2020-07-13 08:00] VITALS: BP 121/62; PULSE 85; RESP 20; TEMP 36.6; O2SAT 97
[2020-07-13] MEDS: ENOXAPARIN 40 MG/0.4 ML SYRINGE SUB-Q ×2 (08:29→20:39)
[2020-07-13] MEDS: hydroCHLOROthiazide 25 MG TABLET PO (08:30)
[2020-07-13] MEDS: ASPIRIN 81 MG ENTERIC TABLET PO (08:30)
[2020-07-13] MEDS: rOPINIRole HCL 1 MG TABLET PO ×2 (08:30→17:18)
[2020-07-13] MEDS: PANTOPRAZOLE SOD SESQUIHYDRATE 20 MG TAB PO (08:30)
[2020-07-13] MEDS: amLODIPine BESYLATE 5 MG TABLET 10 MG PO (08:30)
[2020-07-13] MEDS: GABAPENTIN 300 MG CAPSULE PO ×2 (08:30→17:18)
[2020-07-13] MEDS: BACLOFEN 10 MG TABLET PO ×3 (08:31→17:18)
[2020-07-13] MEDS: MULTIVITAMINS THERAPEUTIC TAB (*BKC) 1 TABLET PO (08:31)
[2020-07-13] MEDS: VENLAFAXINE HCL XR 75 MG CAP.ER.24H 150 MG PO ×2 (08:31→17:18)
[2020-07-13 12:00] VITALS: BP 107/66; PULSE 93; RESP 20; TEMP 36.5; O2SAT 94
[2020-07-13] MEDS: methylPREDNISolone SOD SUCC 40 MG VIAL IV PUSH ×2 (12:30→17:18)
--- NOTE | 2020-07-13 13:48 | PM.IMPN ---
Progress Note: A&P Assessment and Plan (1) Asthma with exacerbation: Code(s): J45.901 - Unspecified asthma with (acute) exacerbation Status: Acute Assessment and Plan: ESTEFANIAIDCristel18 with asthma with asthma exacerbation now on room air Will decrease her IV Solu-Medrol to 40 mg q.6, continue monitoring and consider further decreasing tomorrow versus putting her on oral steroids for discharge. continue steroids bronchodilators (2) Pneumonia due to COVID-19 virus: Code(s): U07.1 - COVID-19; J12.82 - Pneumonia due to coronavirus disease 2018 Status: Acute Assessment and Plan: initial symptoms June 29 with headache and congestion July 14 will be 14 days since symptom onset, so likely could discontinue droplet isolation then (3) Restless leg syndrome: Code(s): G25.81 - Restless legs syndrome Status: Chronic Assessment and Plan: Continue gabapentin. Continue ropinirole (4) HTN (hypertension) with goal to be determined: Code(s): I10 - Essential (primary) hypertension Status: Chronic Assessment and Plan: continue amlodipine and monitor (5) Hyperlipidemia: Code(s): E78.5 - Hyperlipidemia, unspecified Status: Chronic Assessment and Plan: Holding simvastatin Time Spent With Patient Time with patient: 25 - 35 minutes Subjective Date/time seen: 07/13/20 13:48 Interval history: Date of service 07/12/2020: She reports feeling some improvement since arrival. If she rated her breathing 0-10 being the worst currently she is at a 4 or a 5. She denies much cough, improvement of her wheezing and chest tightness. She had still has some dyspnea with exertion when walking around, but checked her pulse ox and it was 96% on room air. She denies any fevers, chills, chest pain, nausea, vomiting, abdominal pain, lack of taste, lack of smell, leg swelling, calf pain or any other symptoms at this time. Review of Systems Review of Systems: All systems reviewed & are unremarkable except as noted in HPI and below Exam Narrative: Exam Narrative: General: 55-year-old woman sitting up in bed eating lunch. Appears comfortable. In no acute distress. Skin: No jaundice or cyanosis. Good skin turgor. Neck: Full range of motion. Supple. Respiratory: Good air movement throughout lung tong, no wheezing, rales or rhonchi. No bony chest wall tenderness. Cardiovascular: The heart has a regular rate and rhythm without murmur. Lower extremities: No lower extremity edema. Distal pulses are easily palpated. No calf tenderness to palpation. Gastrointestinal: The abdomen is soft, nontender and nondistended with active bowel sounds. Psychiatric: Lucid and oriented. Memory intact. Neurologic: No focal deficits. Speech is clear. No facial drooping. Objective Data Vital Signs Vital Signs: Vital Signs - 24 hr 07/12/20 16:00 07/12/20 20:00 07/13/20 00:00 Temperature 98.2 F 98.5 F 97.8 F Pulse Rate 88 83 93 Respiratory Rate 20 16 16 Blood Pressure 107/70 136/75 124/67 Pulse Oximetry 97 94 97 07/13/20 04:00 07/13/20 08:00 07/13/20 12:00 Temperature 98.3 F 97.8 F 97.7 F Pulse Rate 100 85 93 Respiratory Rate 18 20 20 Blood Pressure 128/84 121/62 107/66 Pulse Oximetry 98 97 94 Intake/Output Intake/Output: Intake & Output 07/10/20 07/11/20 07/12/20 07/13/20 23:59 23:59 23:59 23:59 Intake Total 2140 2030 1900 780 Output Total 1300 800 550 800 Balance 840 1230 1350 -20 Meds/Results Medications: Active Medications Generic Name Dose Route Start Last Admin Trade Name Dawit PRN Reason Stop Dose Admin Acetaminophen 650 mg 07/10/20 16:12 07/10/20 21:37 Acetaminophen 325 Mg Tablet PO 650 mg
[2020-07-13 16:00] VITALS: BP 127/56; PULSE 83; RESP 20; TEMP 36.7; O2SAT 97
[2020-07-13 22:00] VITALS: BP 151/68; PULSE 92; RESP 16; TEMP 36.6; O2SAT 97
[2020-07-14] MEDS: ALBUTEROL SULFATE (*SP) INHALER 2 PUFF INHALATION ×6 (01:09→22:22)
[2020-07-14] MEDS: methylPREDNISolone SOD SUCC 40 MG VIAL IV PUSH (05:33)
[2020-07-14 06:00] VITALS: BP 133/64; PULSE 79; RESP 18; TEMP 36.6; O2SAT 98
[2020-07-14] MEDS: ENOXAPARIN 40 MG/0.4 ML SYRINGE SUB-Q ×2 (09:02→22:23)
[2020-07-14] MEDS: ASPIRIN 81 MG ENTERIC TABLET PO (09:03)
[2020-07-14] MEDS: VENLAFAXINE HCL XR 75 MG CAP.ER.24H 150 MG PO ×2 (09:03→16:30)
[2020-07-14] MEDS: hydroCHLOROthiazide 25 MG TABLET PO (09:03)
[2020-07-14] MEDS: MULTIVITAMINS THERAPEUTIC TAB (*BKC) 1 TABLET PO (09:03)
[2020-07-14] MEDS: GABAPENTIN 300 MG CAPSULE PO ×2 (09:04→16:30)
[2020-07-14] MEDS: amLODIPine BESYLATE 5 MG TABLET 10 MG PO (09:04)
[2020-07-14] MEDS: PANTOPRAZOLE SOD SESQUIHYDRATE 20 MG TAB PO (09:04)
[2020-07-14] MEDS: BACLOFEN 10 MG TABLET PO ×3 (09:05→16:30)
[2020-07-14] MEDS: rOPINIRole HCL 1 MG TABLET PO ×2 (09:05→16:30)
--- NOTE | 2020-07-14 11:22 | PM.IMPN ---
Progress Note: A&P Assessment and Plan (1) Asthma with exacerbation: Code(s): J45.901 - Unspecified asthma with (acute) exacerbation Status: Acute Assessment and Plan: COVID-19 with asthma exacerbation now on room air Patient is doing well on IV Solu-Medrol 40 mEq Q 6 hours. Spoke with the user support analyst Dr. Mcnair, who recommended discontinuing her IV Solu-Medrol and given her a dose of oral prednisone 40 mg. He recommend continuing to watch her for for 24 hours to make sure she does not have any rebound exacerbations that would require IV prednisone. If the patient is feeling better tomorrow, without any issues or concerns she can be discharged with a prednisone taper, 40 x 2 days, 30 x 3 days, 20 x 3 days, 10 x 3 days. Continue the patient's home medications of Spiriva, Symbicort, and p.r.n. albuterol rescue inhaler. She will need to follow-up with her web specialist at [facility] at discharge or with our pulmonologists, #[phone]. Continue monitoring. (2) Pneumonia due to COVID-19 virus: Code(s): U07.1 - COVID-19; J12.82 - Pneumonia due to coronavirus disease 2018 Status: Acute Assessment and Plan: Initial symptoms June 29 with headache and congestion Discontinued Isolation precautions. (3) Restless leg syndrome: Code(s): G25.81 - Restless legs syndrome Status: Chronic Assessment and Plan: Continue gabapentin. Continue ropinirole (4) HTN (hypertension) with goal to be determined: Code(s): I10 - Essential (primary) hypertension Status: Chronic Assessment and Plan: continue amlodipine and monitor (5) Hyperlipidemia: Code(s): E78.5 - Hyperlipidemia, unspecified Status: Chronic Assessment and Plan: Holding simvastatin Time Spent With Patient Time with patient: 25 - 35 minutes Subjective Date/time seen: 07/14/20 11:22 Interval history: Date of service 07/14/2020: She reports feeling some improvement since arrival. If she rated her breathing 0-10 being the worst currently she is at a 3 or 4. She denies much cough, improvement of her wheezing and chest tightness. She had still has some dyspnea with exertion when walking around. She denies any fevers, chills, chest pain, nausea, vomiting, abdominal pain, lack of taste, lack of smell, leg swelling, calf pain or any other symptoms at this time. Review of Systems Review of Systems: All systems reviewed & are unremarkable except as noted in HPI and below Exam Narrative: Exam Narrative: General: 55-year-old woman sitting up in bed watching TV. Appears comfortable. In no acute distress. Skin: No jaundice or cyanosis. Good skin turgor. Neck: Full range of motion. Supple. Respiratory: Good air movement throughout lung tong, no wheezing, rales or rhonchi. No bony chest wall tenderness. Cardiovascular: The heart has a regular rate and rhythm without murmur. Lower extremities: No lower extremity edema. Distal pulses are easily palpated. No calf tenderness to palpation. Gastrointestinal: The abdomen is soft, nontender and nondistended with active bowel sounds. Psychiatric: Lucid and oriented. Memory intact. Neurologic: No focal deficits. Speech is clear. No facial drooping. Objective Data Vital Signs Vital Signs: Vital Signs - 24 hr 07/13/20 12:00 07/13/20 16:00 07/13/20 22:00 Temperature 97.7 F 98.0 F 97.9 F Pulse Rate 93 83 92 Respiratory Rate 20 20 16 Blood Pressure 107/66 127/56 L 151/68 H Pulse Oximetry 94 97 97 07/14/20 06:00 Temperature 98 F Pulse Rate 79 Respiratory Rate 18 Blood Pressure 133/64 Pulse Oximetry 98 Intake/Output Intake/Output: Intake & Output 07/11/20
[2020-07-14] MEDS: predniSONE 20 MG TABLET 40 MG PO (12:52)
[2020-07-14 14:00] VITALS: BP 122/65; PULSE 87; RESP 24; TEMP 36.9; O2SAT 96
[2020-07-14 20:00] VITALS: O2SAT 97
[2020-07-14 22:00] VITALS: BP 129/66; PULSE 88; RESP 20; TEMP 36.6; O2SAT 97
[2020-07-15] MEDS: ALBUTEROL SULFATE (*SP) INHALER 2 PUFF INHALATION ×3 (00:50→14:02)
[2020-07-15 06:00] VITALS: BP 116/77; PULSE 74; RESP 20; TEMP 36.6; O2SAT 95
[2020-07-15 08:00] VITALS: PULSE 74; RESP 20; O2SAT 95
--- NOTE | 2020-07-15 09:14 | PM.DS ---
DS: Admitting Diagnosis Admitting Diagnosis Admitting Diagnosis: Asthma exacerbation, COVID pneumonia DS: Discharge Diagnosis Discharge Diagnosis (1) Asthma with exacerbation: Code(s): J45.901 - Unspecified asthma with (acute) exacerbation Status: Acute Assessment and Plan: Patient's symptoms seem to have improved again overnight. Feeling better this morning. Okay with discharge. She has been in touch with her established Mortgage Accounting Clerk and plans to f/u. Transitioned to prednisone taper on 07/14. Satting mid-upper 90s on RA. Recent COVID PNA; symptoms started on 06/29; possible precipitating factor. Continue home meds at discharge Discharge on Prednisone taper F/u with established physical anthropologist (2) Pneumonia due to COVID-19 virus: Code(s): U07.1 - COVID-19; J12.82 - Pneumonia due to coronavirus disease 2018 Status: Acute Assessment and Plan: Initial symptoms started on 06/29. No longer on isolation Continue supportive care at home F/u with Mortgage Accounting Clerk and PCP Recommended CXR in 2-3 months to ensure opacities are improving; she will discuss with Mortgage Accounting Clerk (3) Restless leg syndrome: Code(s): G25.81 - Restless legs syndrome Status: Chronic Assessment and Plan: Continue home medications (4) HTN (hypertension) with goal to be determined: Code(s): I10 - Essential (primary) hypertension Status: Chronic Assessment and Plan: BP 110s sys most recently continue home amlodipine (5) Hyperlipidemia: Code(s): E78.5 - Hyperlipidemia, unspecified Status: Chronic Assessment and Plan: Resume simvastatin at discahrge DS: Summary Hospital Course Reason for hospitalization: Asthma exacerbation, COVID PNA Hospital Course: Date of arrival: 07/09/20 Date of discharge: 07/15/20 Patient is a 55 yo F with history of asthma, HTN, anxiety who presented to the ED on 07/09 with complaints of shortness of breath and URI symptoms. While in the ED, CXR was suggestive of pneumonia. She was maintaining adequate saturations on RA. She was swabbed for COVID. It was felt she was likely having an asthma exacerbation likely due to COVID pneumonia and was given IV solumedrol and a neb treatment with improvement with symptoms, however was still significantly wheezing. Patient admitted under this setting of asthma exacerbation likely due to COVID PNA. Please see H&P for further details. Patient was admitted to the hospitalist service for further management/treatment. She did not meet criteria for Remdesivir as she was not hypoxic. She was started on scheduled IV solumedrol; this was tapered throughout her stay and transitioned to oral prednisone on 07/14. She was placed on isolation during stay, and was taken off isolation on 07/14 as it had been greater than 10 days since symptom onset. Plan was for patient to continue on a prednisone taper at discharge. She was to follow up with her established physical anthropologist after discharge. A repeat CXR was recommended in 2-3 months to ensure pneumonia was clearing up/resolved. Patient agreeable and comfortable with plan for discharge. Patient hemodynamically stable and in improved condition for discharge on 07/15 Status at Discharge Overall status at discharge: patient is progressing back to baseline Time Spent with Patient Time attestation: Total time spent providing and/or coordinating discharge services: Time spent: Greater than 30 minutes Exam Narrative: Exam Narrative: General: Patient resting supine in bed in no acute distress. Eating breakfast comfortably without issues HEENT: Normocephalic, EOMI, oral mucosa moist. Cardiovascular: Rate and rhythm a
[2020-07-15] MEDS: VENLAFAXINE HCL XR 75 MG CAP.ER.24H 150 MG PO (09:19)
[2020-07-15] MEDS: BACLOFEN 10 MG TABLET PO ×2 (09:20→14:01)
[2020-07-15] MEDS: amLODIPine BESYLATE 5 MG TABLET 10 MG PO (09:20)
[2020-07-15] MEDS: ASPIRIN 81 MG ENTERIC TABLET PO (09:20)
[2020-07-15] MEDS: ENOXAPARIN 40 MG/0.4 ML SYRINGE SUB-Q (09:21)
[2020-07-15] MEDS: GABAPENTIN 300 MG CAPSULE PO (09:21)
[2020-07-15] MEDS: hydroCHLOROthiazide 25 MG TABLET PO (09:21)
[2020-07-15] MEDS: PANTOPRAZOLE SOD SESQUIHYDRATE 20 MG TAB PO (09:22)
[2020-07-15] MEDS: MULTIVITAMINS THERAPEUTIC TAB (*BKC) 1 TABLET PO (09:22)
[2020-07-15] MEDS: rOPINIRole HCL 1 MG TABLET PO (09:23)
== END 2020-07-15 13:30 | disposition home or self-care (01) | DRG 177 ==
LOC: ANHED 14:00 → ANH3MEDSUR 15:59
PROVIDERS: Internal Medicine; Nurse Practitioner; Physician Assistant; Admitting Provider Internal Medicine; Emergency Provider General Practice; PCP Physician Assistant; Visit Provider Family Medicine
DX: U07.1 COVID-19 (principal); J12.82 Pneumonia due to coronavirus disease 2019; J45.901 Unspecified asthma with (acute) exacerbation; G25.81 Restless legs syndrome; E78.5 Hyperlipidemia, unspecified; I10 Essential (primary) hypertension; F41.9 Anxiety disorder, unspecified; G89.29 Other chronic pain; M25.562 Pain in left knee; M25.561 Pain in right knee; Z87.891 Personal history of nicotine dependence
CPT/HCPCS: 36415; 36600; 71045; 80048; 80053; 82375; 82728; 82805; 83050; 83615; 83735; 83880; 84100; 84439; 84443; 84480; 84484; 85025; 85027; 85380; 85610; 85730; 86140; 87040; 87804; 93005; 93970; 96365; 96372; 96375; 96376; 99285; A9270; C9803; G0378; J0456; J0696; J1100; J1650; J2920; J2930; J7512; U0003; U0005

== ENCOUNTER 2022-04-06 14:08 | Outpatient (CLI) | payer MEDICARE, MEDICAID, SELFPAY ==
--- NOTE | ~2022-04-06 | CT_ITS ---
EXAMINATION: CT sinus wo con DATE: 04/06/2022 14:34 INDICATION: Sinusitis TECHNIQUE: Computed tomography (CT) of the paranasal sinuses was performed without contrast. Iterativ e reconstruction technique was employed. Exam dose: 278.02 mGy-cm total exam DLP. COMPARISON: None FINDINGS: There is mild leftward deviation of the nasal septum. Intralamellar cell of left middle nasal turbinate. There is moderate prominence of the nasal turbinat es. There is prominent partial opacification of both frontal sinuses and extensive opacification of the a nterior mid right ethmoid air cells. There is complete nearly opacification of the diminutive right maxillary sinus with prominent cortica l thickening of the right maxillary sinus wall. There is mild echograms lesion of the right maxillary ostium and infundibulum. The left maxillary sinus and left ostiomeatal unit are patent. The sphenoid sinuses are normally developed and aerated. The mastoid air cells are normally developed and aerated. Middle and inner ear apparatus appear normal bilaterally. IMPRESSION: Mild leftward deviation of nasal septum Intralamellar cell of left middle nasal turbinate Bilateral frontal, right ethmoid partial opacification Complete opacification of the right maxillary sinus, probably chronic, with prominent asymmetric thic kening of the right maxillary sinus bony wall Mild soft tissue thickening at the right maxillary ostium and infundibulum Reviewed, dictated and finalized at [facility]. Reviewed, dictated and finalized at [facility]. IMPRESSION: Mild leftward deviation of nasal septum Intralamellar cell of left middle nasal turbinate Bilateral frontal, right ethmoid partial opacification Complete opacification of the right maxillary sinus, probably chronic, with pro minent asymmetric thickening of the right maxillary sinus bony wall Mild soft tissue thickening at the right maxillary ostium and infundibulum
== END 2022-04-06 14:09 | disposition home or self-care (01) ==
PROVIDERS: PCP Physician Assistant; Visit Provider Otolaryngology
DX: J01.90 Acute sinusitis, unspecified (principal); J34.2 Deviated nasal septum
CPT/HCPCS: 70486

== ENCOUNTER 2022-04-15 20:36 | Emergency (ER) | payer MEDICARE, MEDICAID, SELFPAY ==
--- NOTE | ~2022-04-15 | CT_ITS ---
EXAMINATION: CT abdomen pelvis w con DATE: 04/16/2022 00:02 INDICATION: Lower abdominal pain TECHNIQUE: Computed tomography (CT) of the abdomen and pelvis was performed with 100 CC Omnipaque 350 intravenous contrast. Automated exposure control and iterative reconstruction technique were employe d. Exam dose: 1068.53 mGy-cm total exam DLP. COMPARISON: None. FINDINGS: The lung bases are clear of infiltrate or consolidation. Heart size is within normal range. No pericardial or pleural effusion. No hepatic, splenic, pancreatic space-occupying mass lesion. There are a couple of pancreatic calcifi cations suggesting mild chronic pancreatitis. No bile duct or pancreatic duct dilatation. The gallbla dder is unremarkable without evidence of thickening of the wall or pericholecystic fat stranding or f luid. There are multiple calcified splenic granulomas Normal morphology of the adrenal glands. There is an approximately 5.4 x 6.8 mm calculus at the left ureterovesical junction with prominent ed hank at the ureterovesical junction and prominent left hydroureteronephrosis. There is a 3.8 mm nonobstructing left renal calculus. Approximately 4.3 mm pinpoint nonobstructing lower pole right renal calculi. Several right renal cysts measuring up to 1 cm. No right ureteral calculus or right-sided hydronephrosis. Normal caliber of the abdominal aorta. No intraperitoneal or retroperitoneal or pelvic mass lesion or adenopathy or ascites. The uterus and adnexal areas are unremarkable. Mild nonspecific diffuse thickening of the urinary brennan dder wall. No bowel obstruction or intraperitoneal free air. Small fat-containing umbilical hernia. Moderately severe degenerative disc disease and mild retrolisthesis at L1-2. Severe degenerative disc disease and grade 1 anterolisthesis due to degenerative changes apophyseal j oints at L4-5. No suspicious osteolytic or osteoblastic lesions are noted. IMPRESSION: 5.4 x 6 x 8 mm left renal vesicle junction calculus with prominent ureterovesical juncti on edema and left hydroureteronephrosis Minimal bilateral nonobstructive nephrolithiasis Right renal cysts Reviewed, dictated and finalized at [facility]. Reviewed, dictated and finalized at [facility]. NING AND WASHING EQUIPMENT OPERATOR IMPRESSION: 5.4 x 6 x 8 mm left renal vesicle junction calculus with prominent ureterovesical junction edema and left hydroureteronephrosis Minimal bilateral nonobstructive nephrolithiasis Right renal cysts
[2022-04-15 20:58] VITALS: BP 145/71; PULSE 84; RESP 20; TEMP 36.3; O2SAT 97
[2022-04-15 21:54] LABS: Appearance Urine Slightly Cloudy (Clear); Bilirubin Urine Negative (Negative); Blood Urine Trace-intact (Negative); Color Urine Yellow (Yellow); Glucose Urine UA Negative (Negative); Ketones Urine Negative (Negative); Leukocyte Esterase Ur Negative LEU/UL (Negative); Nitrate Urine Negative (Negative); Protein Urine Negative (Negative); Urobilinogen Urine 0.2 mg/dL (<2.0)
[2022-04-15 21:58] LABS: Amorphous Sediment Urine Moderate; Bacteria Urine Trace /hpf; Mucus Urine Rare /lpf; Squamous Epithelial Cell Urine Rare /hpf (Few); WBC Urine 0-3 /hpf
[2022-04-15 22:00] LABS: Add Urine Microscopic? YES
--- NOTE | 2022-04-15 22:18 | ED.ABDPAIN ---
HPI - Abdominal Pain General Chief Complaint: Abdominal Pain Stated Complaint: ABDOMEN PAIN Time Seen by Provider: 04/15/22 22:04 History of Present Illness HPI narrative: 56-year-old female history of GERD, hypertension presents to the emergency room for evaluation of lower abdominal pain that began at 5:00 this evening. Describes the pain as a cramping and throbbing sensation that does not radiate. Denies flank pain denies nausea or vomiting, diarrhea. Patient denies any dysuria, however does endorse decrease in urine flow. Reports history of nonobstructive kidney stones patient states that she has had multiple bowel movements today that were soft and formed. Denies any abdominal surgeries. Reports had a colonoscopy 2 years ago where multiple polyps were found and removed. Denies melena or hematochezia Related Data Home Medications Medication Instructions Recorded Confirmed albuterol sulfate 2.5 mg/3 mL 2.5 mg inhalation PRN PRN 07/09/20 03/31/22 (0.083 %) solution for nebulization Shortness Of Breath Or Wheezing amlodipine 10 mg tablet 10 mg PO DAILY 07/09/20 03/31/22 aspirin 81 mg tablet 81 mg PO DAILY 07/09/20 03/31/22 baclofen 10 mg tablet 10 mg PO TID 07/09/20 03/31/22 budesonide-formoterol HFA 160 2 puff inhalation PRN PRN 07/09/20 03/31/22 mcg-4.5 mcg/actuation aerosol Shortness Of Breath Or Wheezing inhaler (Symbicort) gabapentin 300 mg capsule 300 mg PO BID 07/09/20 03/31/22 hydrochlorothiazide 25 mg tablet 25 mg PO DAILY 07/09/20 03/31/22 multivitamin 1 tablet PO DAILY 07/09/20 03/31/22 naproxen 500 mg tablet 1,000 mg PO BID 07/09/20 03/31/22 ropinirole 1 mg tablet 1 mg PO BID 07/09/20 03/31/22 simvastatin 40 mg tablet 40 mg PO DAILY 07/09/20 03/31/22 tiotropium bromide 2.5 2 puff inhalation PRN PRN 07/09/20 03/31/22 mcg/actuation mist for inhalation Shortness Of Breath Or Wheezing (Spiriva Respimat) venlafaxine 150 mg 150 mg PO BID 07/09/20 03/31/22 capsule,extended release 24 hr Allergies Allergy/AdvReac Type Severity Reaction Status Date / Time No Known Allergies Allergy Verified 04/15/22 22:09 Review of Systems Review of Systems: CONSTITUTIONAL: Denies fever, chills, or sweats. EYES: Denies visual changes, redness, or discharge. ENT: Denies rhinorrhea, congestion, sore throat, or otalgia. CARDIOVASCULAR: Denies chest pain, palpitations, or edema. RESPIRATORY: Denies cough or dyspnea. GASTROINTESTINAL: Reports lower abdominal pain GENITOURINARY: Denies dysuria or hematuria. SKIN: Denies rash or itching. MUSCULOSKELETAL: Denies back pain, joint pain, or myalgia. NEUROLOGIC: Denies headache, numbness, dizziness, or weakness. PSYCHIATRIC: Denies anxiety or depression. PMFSH Past Medical History Medical History Allergies Anxiety Arthritis Asthma Chronic pain Bilateral knee pain GERD (gastroesophageal reflux disease) HTN (hypertension) with goal to be determined Hyperlipidemia Hypertension Osteoporosis Surgical History Surgical History No pertinent past surgical history Family History Family History Father Emphysema lung COPD (chronic obstructive pulmonary disease) Mother Alzheimer's dementia Asthma Alcoholism Hypertension Depression Anxiety Sibling Alcoholism Hypertension Depression Anxiety Son Asthma Depression Anxiety Social History Social History (Updated 03/31/22 @ 14:09 by Tanya Rosales CMA) Smoking status: Former smoker Smoking end date: 06/06/05 Alcohol intake: never Substance use: current Substance use type: marijuana Additional occupation/education comments: Disabled Gender identity (if verbalized by the patient): Female Spiritual care concerns: No Exam Narrative: GENERAL: Well-appearing, well-nourished, no physical limitations, and in no ac
[2022-04-15 22:43] LABS: Basophils Absolute Auto 0.1 K/mm3 (0.0-0.1); Basophils Percent Auto 0.4 % (0.2-1.2); Eosinophils Absolute Auto 0.6 K/mm3 (0-0.3); Eosinophils Percent Auto 4.2 % (0-4.4); Hematocrit 40.5 % (37.0-47.0); Hemoglobin 13.4 g/dL (12.0-15.0); Immature Granulocyte Absolute 0.06 K/mm3 (0.00-0.031); Immature Granulocyte Percent A 0.4 % (0-0.5); Lymphocytes Absolute Auto 2.31 K/mm3 (0.9-3.2); Lymphocytes Percent Auto 16.5 % (18.3-44.2); Mean Corpuscular HGB Conc 33.1 g/dl (32-36); Mean Corpuscular Hemoglobin 29.5 pg (26-34); Mean Platelet Volume 10.8 fl (7.4-10.4); Monocytes Absolute Auto 0.8 K/mm3 (0.1-0.6); Monocytes Percent Auto 5.4 % (2.6-8.5); Neutrophils Absolute Auto 10.3 K/mm3 (1.3-6.7); Neutrophils Percent Auto 73.1 % (45.5-73.1); Platelet Count Result 326 k/mm3 (150-375); Red Blood Count 4.55 M/mm3 (4.2-5.4); Red Cell Distribution Width 12.4 % (11.5-14.5)
[2022-04-15 22:52] LABS: Lactic Acid Reflex 1.3 mmol/L (0.7-2.0)
[2022-04-15 22:56] LABS: Alanine Aminotransferase 23 U/L (6-35); Albumin Level 4.1 g/dL (3.5-5.1); Alkaline Phosphatase 106 U/L (38-126); Anion Gap 13 mmol/L (8-16); Aspartate Amino Transferase 25 U/L (14-36); Bilirubin,Total 0.3 mg/dL (0.2-1.3); Blood Urea Nitrogen 21 mg/dL (7-17); Calcium 8.9 mg/dL (8.4-10.2); Carbon Dioxide 28 mmol/L (22-30); Chloride 103 mmol/L (98-107); Estimated CRCL calculation 68 ml/min; Estimated Glomerular Filt Rate > 60; Glucose 139 mg/dL (65-110); Lipase 78 U/L (23-300); Potassium 2.7 mmol/L (3.4-5.0); Sodium 144 mmol/L (137-145)
[2022-04-15 23:15] LABS: Magnesium 2.2 mg/dL (1.6-2.3)
[2022-04-15] MEDS: HYDROmorphone HCL INJ (*CRX) 1 MG/ML SYR 0.5 MG IV PUSH (23:17)
[2022-04-15] MEDS: POTASSIUM CHLORIDE 20 MEQ TABLET 40 MEQ PO (23:17)
[2022-04-15] MEDS: SODIUM CHLORIDE 0.9% IV 1,000 ML 999 ML IV CONT (23:17)
[2022-04-15 23:18] VITALS: BP 153/82; PULSE 70; RESP 15; O2SAT 94
--- NOTE | 2022-04-15 23:34 | PC.NURSE ---
CARMEN Hollins assumed care of pt at this time.
--- NOTE | 2022-04-15 23:52 | PC.NURSE ---
Pt to CT scan via stretcher at this time.
[2022-04-16 00:29] VITALS: BP 149/78; PULSE 78; RESP 19; O2SAT 96
[2022-04-16] MEDS: POTASSIUM CHLORIDE INJ 40 MEQ in SODIUM CHLORIDE 0.9% IV 500 ML 130 MEQ IVPB (00:30)
--- NOTE | 2022-04-16 00:31 | ECG_ITS ---
Measurements Intervals [place] Rate: 83 P: -66 DE: 62 QRS: -34 QRSD: 71 T: 3 QT: 372 QTc: 437 Interpretive Statements SINUS RHYTHM LOW QRS VOLTAGE IN PRECORDIAL LEADS LEFT VENTRICULAR HYPERTROPHY POOR R WAVE PROGRESSION, ANTERIOR LEADS BASELINE ARTIFACT- I, II, III, AVR, AVF BORDERLINE ECG COMPARED TO ECG 07/09/2020 12:18:27 POOR R WAVE PROGRESSION, ANTERIOR LEADS NOW PRESENT Electronically Signed On 04-16-2022 8:10:33 BLADDER CHANGER by Randy Rosenthal D.O.
[2022-04-16 00:58] LABS: Troponin I < 0.012 ng/mL (0.000-0.034)
[2022-04-16 03:48] VITALS: BP 113/69; PULSE 85; RESP 15; O2SAT 100
== END 2022-04-16 05:16 | disposition home or self-care (01) ==
PROVIDERS: Emergency Medicine; Emergency Provider Nurse Practitioner Family; PCP Physician Assistant
DX: N13.2 Hydronephrosis with renal and ureteral calculous obstruction (principal); I10 Essential (primary) hypertension; M19.90 Unspecified osteoarthritis, unspecified site; J45.909 Unspecified asthma, uncomplicated; E78.5 Hyperlipidemia, unspecified; M81.0 Age-related osteoporosis without current pathological fracture; F41.9 Anxiety disorder, unspecified; K21.9 Gastro-esophageal reflux disease without esophagitis; Z79.82 Long term (current) use of aspirin; Z87.891 Personal history of nicotine dependence; I51.7 Cardiomegaly; R94.31 Abnormal electrocardiogram [ECG] [EKG]; N28.1 Cyst of kidney, acquired
CPT/HCPCS: 36415; 74177; 80053; 81001; 83605; 83690; 83735; 84484; 85025; 93005; 96361; 96365; 96366; 96375; 99284; A9270; J1170; J3480; J7030; J7040; Q9967

== ENCOUNTER 2022-07-28 10:20 | Outpatient (CLI) | payer MEDICARE, MEDICAID, SELFPAY ==
[2022-07-28 11:30] LABS: Anion Gap 7 mmol/L (8-16); Blood Urea Nitrogen 24 mg/dL (7-17); Calcium 8.9 mg/dL (8.4-10.2); Carbon Dioxide 29 mmol/L (22-30); Chloride 105 mmol/L (98-107); Estimated Glomerular Filt Rate > 60; Glucose 105 mg/dL (65-110); Potassium 3.1 mmol/L (3.4-5.0); Sodium 141 mmol/L (137-145)
== END 2022-07-28 10:21 | disposition home or self-care (01) ==
LOC: ANHSURGERY 10:27
PROVIDERS: Anesthesiology; PCP Internal Medicine; Visit Provider Otolaryngology
DX: Z51.81 Encounter for therapeutic drug level monitoring (principal); Z01.818 Encounter for other preprocedural examination
CPT/HCPCS: 36415; 80048

== ENCOUNTER 2022-08-03 00:08 | Day surgery (SDC) | payer MEDICARE, MEDICAID, SELFPAY ==
[2022-07-26 15:02] VITALS: BMI 35.4
--- NOTE | 2022-07-26 15:09 | SUR.PREOP ---
Report to the Outpatient Waiting Room, entrance under the green pavilion located off [facility], at time _1015 on date _08/03/22 . Planned Procedure Time: 1215. Time changes happen often and if your time is changed the preop area will call you the afternoon before. - You and your visitor will be asked to self-screen and do not enter if you have any COVID symptoms. - Only one visitor is requested with a max of two and NO children visitors are allowed at this time. - The patient visitor may be requested to leave or wait in car when not with patient due to distancing restrictions. - A mask is optional within the hospital at this time. Patients may have clear liquids (water, carbonated beverages, clear teas, apple juice) until 3 hours prior to surgery with a maximum of 20 ounces. - No food from midnight until time of surgery - Infants may have breast milk until 4 hours before surgery, infant formula 6 hours prior to surgery. - Children will be allowed to drink immediately following surgery. If applicable, please bring a bottle or sippy cup to assist with drinking. Juice, water, soda, and popsicles are readily available. For infants on formula, please bring formula the day of surgery. Pacifiers are allowed. Take the following medications with a SIP of water the morning of surgery: symbicort,spiriva,albuterol,amodipine,venlafaxine DO NOT STOP ANY OF YOUR OTHER PRESCRIPTION MEDICATIONS PRIOR TO SURGERY ?EXCEPT THE FOLLOWING Medications to discontinue per physician __CHECK WITH SURGEON ABOUT STOPPING ASPIRIN AND NAPROXEN STOP MULTIVITAMIN Date to take last dose_07/31/22 Please no make-up, nail scottish, hairspray, perfume, deodorant, or body powder the day of surgery. No jewelry (including any body piercings) or valuables the day of surgery, leave them at home. Please take a shower or bath the night before, or the morning of, surgery with an antibacterial soap. Wear comfortable, loose fitting clothing. Children are encouraged to wear pajamas. - Jewelry must be removed prior to entering the operating room. Rings and piercings that are not removed may be cut off. - The hospital will not accept responsibility for valuables. - Please leave all valuables, including medications, at home the day of surgery. If you are going home after surgery, a licensed milk delivery driver must drive you home. - NO public transportation without another adult if you receive anesthesia. - We recommend that an adult stay with you for 24 hours following discharge. - We also recommend that you do not drive, make important decision, drink alcoholic beverages, or take any drugs that were not prescribed by your health care provider for at least 24 hours after your discharge time. For Pediatric surgeries, we recommend two adults accompany the child home. Follow any additional instructions given to you from your surgeon. If you or anyone in your household have experienced Covid symptoms in the past week, please notify your surgeon or the nurse liaison at the phone number below for possible testing. Telephone instructions given to _KHLOE WATKINS and asked if any additional questions and then verbalized understanding. Patient advised to call surgeon office or pre surgery nurse liaison [phone] if any additional questions.
--- NOTE | 2022-08-02 14:33 | PM.IMHP ---
H&P: HPI History of Present Illness Date/Time: 08/02/22 14:33 Chief Complaint: Right-sided sinusitis septal deviation Narrative: planned surgical procedure Review of Systems Review of Systems: All systems reviewed & are unremarkable except as noted in HPI and below [facility] Past Medical History Medical History Allergies Anxiety Arthritis Asthma Chronic pain Bilateral knee pain GERD (gastroesophageal reflux disease) HTN (hypertension) with goal to be determined Hyperlipidemia Hypertension Osteoporosis Surgical History Surgical History No pertinent past surgical history Family History Family History Father Emphysema lung COPD (chronic obstructive pulmonary disease) Mother Alzheimer's dementia Asthma Alcoholism Hypertension Depression Anxiety Sibling Alcoholism Hypertension Depression Anxiety Son Asthma Depression Anxiety Social History Social History (Updated 03/31/22 @ 14:09 by Tanya Rosales CMA) Smoking status: Former smoker Tobacco type: cigarettes Smoking end date: 06/06/12 Additional smoking assessment comments: 30 years cigarettes 1 1/2 ppd Alcohol intake: never Substance use: current Substance use type: marijuana Other substance usage details: snoking daily Living arrangements: with family Additional occupation/education comments: Disabled Gender identity (if verbalized by the patient): Female Spiritual care concerns: No Meds Home Medications and Allergies Home Medications Medication Instructions Recorded Confirmed Type albuterol sulfate 2.5 mg/3 mL 2.5 mg inhalation DAILY 07/09/20 07/26/22 History (0.083 %) solution for nebulization amlodipine 10 mg tablet 10 mg PO DAILY 07/09/20 07/26/22 History aspirin 81 mg tablet 81 mg PO DAILY 07/09/20 07/26/22 History budesonide-formoterol HFA 160 2 puff inhalation DAILY 07/09/20 07/26/22 History mcg-4.5 mcg/actuation aerosol inhaler (Symbicort) multivitamin 1 tablet PO DAILY 07/09/20 07/26/22 History naproxen 500 mg tablet 500 mg PO DAILY 07/09/20 07/26/22 History ropinirole 1 mg tablet 1 mg PO BID 07/09/20 07/26/22 History simvastatin 40 mg tablet 20 mg PO DAILY 07/09/20 07/26/22 History tiotropium bromide 2.5 2 puff inhalation DAILY 07/09/20 07/26/22 History mcg/actuation mist for inhalation (Spiriva Respimat) venlafaxine 150 mg 150 mg PO BID 07/09/20 07/26/22 History capsule,extended release 24 hr fluticasone propionate 50 1 - 2 spray intranasal BID PRN 03/15/22 07/26/22 Rx mcg/actuation nasal Nasal Congestion #16 grams spray,suspension omeprazole 20 mg capsule,delayed See Rx Instructions .Route 05/25/22 07/26/22 Rx release .COMPLEX #90 caps hydrochlorothiazide 25 mg tablet 25 mg PO DAILY 07/26/22 07/26/22 History prednisone 5 mg tablet 5 mg PO DAILY #4 tabs 07/29/22 Rx Allergies Allergy/AdvReac Type Severity Reaction Status Date / Time No Known Allergies Allergy Verified 07/26/22 14:33 Exam Narrative: right middle meatal edema septal deviation Assessment and Plan Assessment and plan (1) Chronic sinusitis: Code(s): J32.9 - Chronic sinusitis, unspecified Status: Acute Assessment and Plan: plan operating room endoscopic image guided right-sided maxillary antrostomy with tissue removal anterior ethmoidectomy frontal sinusotomy. Possible endoscopic assisted septoplasty. Risks were discussed including septal perforation failure to resolve symptoms need for further procedures bleeding infection brain damage brain CSF leak change in vision total blindness need for time off work need for time off school postoperative bleeding failure to resolve symptoms. (2) Acute sinusitis: Code(s): J01.90 - Acute sinusitis, unspecified Status: Acu
[2022-08-03] VITALS (8 sets, daily range): BP systolic 102–126; BP diastolic 59–81; PULSE 72–90; RESP 11–18; TEMP 36.2–36.3; O2SAT 97–100
--- NOTE | 2022-08-03 07:20 | WPDHPUPDATE1 ---
History and Physical Update Update Date/Time: 08/03/22 07:20 History and Physical has been reviewed, including an updated exam of the patient. There are NO changes in the patient's condition. Risks, benefits, and alternatives have been discussed and questions answered. Patient agrees to proceed with procedure.
--- NOTE | 2022-08-03 07:48 | WPDHPUPDATE1 ---
History and Physical Update Update Date/Time: 08/03/22 07:48 History and Physical has been reviewed, including an updated exam of the patient. There are NO changes in the patient's condition. Risks, benefits, and alternatives have been discussed and questions answered. Patient agrees to proceed with procedure.
[2022-08-03] MEDS: ACETAMINOPHEN 500 MG TABLET 1000 MG PO (11:08)
[2022-08-03] MEDS: LACTATED RINGERS 1,000 ML 30 ML IV CONT ×2 (11:20→16:13)
--- NOTE | 2022-08-03 12:12 | WPDANESEPPF ---
Anes - Initial Pre Proc Eval Procedure: Operation Date: 08/03/22 13:15 Proposed Procedures p Image Guided Right Maxillary Antrostomy with Tissue Removal, Bilateral Anterior Ethmoidectomy, Bilateral Frontal Sinusotomy - Hay Wise MD Date/Time: 08/03/22 12:12 Surgeon: Hay Wise MD Pre Op Diagnosis: Chronic Sinusitis Patient Data Age: 57 Gender: F Height: 1.63 m Weight: 88.7 kg Last Vital Signs Temp 97.2 F L 08/03/22 11:23 Pulse 78 08/03/22 11:23 Resp 18 08/03/22 11:23 BP 112/59 L 08/03/22 11:23 Pulse Ox 97 08/03/22 11:23 O2 Del Method Room Air 08/03/22 11:23 Allergies Allergy/AdvReac Type Severity Reaction Status Date / Time No Known Allergies Allergy Verified 08/03/22 10:52 Home Medications Medication Instructions Recorded Confirmed Type albuterol sulfate 2.5 mg/3 mL 2.5 mg inhalation DAILY 07/09/20 07/26/22 History (0.083 %) solution for nebulization amlodipine 10 mg tablet 10 mg PO DAILY 07/09/20 07/26/22 History aspirin 81 mg tablet 81 mg PO DAILY 07/09/20 07/26/22 History budesonide-formoterol HFA 160 2 puff inhalation DAILY 07/09/20 07/26/22 History mcg-4.5 mcg/actuation aerosol inhaler (Symbicort) multivitamin 1 tablet PO DAILY 07/09/20 07/26/22 History naproxen 500 mg tablet 500 mg PO DAILY 07/09/20 07/26/22 History ropinirole 1 mg tablet 1 mg PO BID 07/09/20 07/26/22 History simvastatin 40 mg tablet 20 mg PO DAILY 07/09/20 07/26/22 History tiotropium bromide 2.5 2 puff inhalation DAILY 07/09/20 07/26/22 History mcg/actuation mist for inhalation (Spiriva Respimat) venlafaxine 150 mg 150 mg PO BID 07/09/20 07/26/22 History capsule,extended release 24 hr fluticasone propionate 50 1 - 2 spray intranasal BID PRN 03/15/22 07/26/22 Rx mcg/actuation nasal Nasal Congestion #16 grams spray,suspension omeprazole 20 mg capsule,delayed See Rx Instructions .Route 05/25/22 07/26/22 Rx release .COMPLEX #90 caps hydrochlorothiazide 25 mg tablet 25 mg PO DAILY 07/26/22 07/26/22 History prednisone 5 mg tablet 5 mg PO DAILY #4 tabs 07/29/22 Rx Patient hx anesthesia problems: none Family hx anesthesia problems: none Results Review: All pre-operative results and documents have been reviewed as part of the pre-operative evaluation. [facility] Past Medical History Medical History Allergies Anxiety Arthritis Asthma Chronic pain Bilateral knee pain GERD (gastroesophageal reflux disease) HTN (hypertension) with goal to be determined Hyperlipidemia Hypertension Osteoporosis Surgical History Surgical History No pertinent past surgical history Family History Family History Father Emphysema lung COPD (chronic obstructive pulmonary disease) Mother Alzheimer's dementia Asthma Alcoholism Hypertension Depression Anxiety Sibling Alcoholism Hypertension Depression Anxiety Son Asthma Depression Anxiety Social History Social History (Updated 03/31/22 @ 14:09 by Tanya Rosales CMA) Smoking status: Former smoker Tobacco type: cigarettes Smoking end date: 06/06/12 Additional smoking assessment comments: 30 years cigarettes 1 1/2 ppd Alcohol intake: never Substance use: current Substance use type: marijuana Other substance usage details: snoking daily Living arrangements: with family Additional occupation/education comments: Disabled Gender identity (if verbalized by the patient): Female Spiritual care concerns: No Anes - Eval Final PreProcedure Day of Procedure 08/03/22 12:12 Patient weight: obese Heart: regular rate and rhythm Lungs: clear to auscultation Airway: Mallampati scale class II (edentulous) Neurological: alert and oriented Last oral intake: >/= 8 hours ASA classification: III Emergent: no Anesthetic plan:
--- NOTE | 2022-08-03 13:49 | WPDHPUPDATE1 ---
History and Physical Update Update Date/Time: 08/03/22 13:49 Right sided frontal sinusotomy image guided endoscopic, right maxillary antrostomy with tissue removal, bilateral anterior ethmoidectomies, possible septoplasty
[2022-08-03] MEDS: ceFAZolin 2 GM/D5W 50 ML 2 GM/50 ML BAG IVPB (13:57)
[2022-08-03] MEDS: OXYMETAZOLINE HCL 0.05% NAS 15 ML BTL (*BKC) 1 SPRAY NASAL (14:24)
[2022-08-03] MEDS: MIDAZOLAM HCL (*CRX) 2 MG/2 ML VIAL 1 MG IV PUSH (16:20)
--- NOTE | 2022-08-03 16:31 | P.OP_ITS ---
Procedure Note - Detailed Date of Procedure 08/03/22 Pre-op Diagnosis Chronic Sinusitis, allergic fungal sinusitis Post-op Diagnosis Same Procedure Performed right-sided image guided endoscopic maxillary antrostomy with tissue removal to jennifer ethmoidectomy tissue removal frontal sinusotomy tissue removal, left-sided anterior ethmoidectomy Right middle turbinectomy Surgeon Hay Wise MD Anesthesia General Indications see above Findings copious amounts of fungal been right-sided sinuses left side had some polypoid type edema in the anterior ethmoids. Description of Procedure Patient identified consent verified. Patient brought operating room. Time- out performed general anesthesia induced endotracheal tube secured. Patient prepped reposition image guided initiated confirmed. Second time-out performed. Afrin-soaked pledgets placed to sit for. 5 minutes. 0 degree endoscope utilized right-sided tackled 1st middle turbinate was scarred down middle turbinectomy was performed stump cauterized. Maxillary antrostomy performed with guidance straight through cut backbiter 0 and 70 degree scopes microdebrider. Copious amounts of fungal debris removed irrigated for several minutes no more fungal debris present. Accidental tear mucosa anterior to the nasolacrimal duct as. Total ethmoidectomy performed with image guidance Kerrison microdebrider copious amounts of fungal debris in the ethmoid cells. Frontal sinusotomy performed image guided 70 scope frontal instruments including Hosemann and Cobra. Copious amounts of fungal debris removed the frontal sinus as. This was also irrigated for several minutes to ensure no remnant fungal debris remained. Left-sided anterior ethmoidectomy performed with image guidance microdebrider. Scant amount of polypoid edema. Total blood loss about 75 cc. No pack placed bilaterally. Patient tolerated procedure well no complications. Care the patient given Anesthesiology. I performed all dictated portions procedure. Estimated Blood Loss -75.0 Drains No Packing Yes (Novapak) Pathology None sent Complications No immediate complications Condition Stable Disposition PACU [facility] Billing Surgery - Charge Forward: Surgery Billing
--- NOTE | 2022-08-03 17:03 | SUR.PHASEII ---
PATIENT STILL SLIGHTLY ANXIOUS BUT CALMING DOWN WITH GRANDDAUGHTER IN THE ROOM WITH HER.
[2022-08-03] MEDS: oxyCODONE HCL (*CRX) 5 MG TAB IR PO (17:23)
--- NOTE | 2022-08-03 17:23 | SUR.PHASEII ---
PATIENT CALM NOW.
== END 2022-08-03 17:37 | disposition home or self-care (01) ==
PROVIDERS: PCP Internal Medicine; Visit Provider Otolaryngology
PROC: (CPT 31267; principal; 2022-08-03 13:15)
DX: J32.9 Chronic sinusitis, unspecified (principal); J34.3 Hypertrophy of nasal turbinates; J34.2 Deviated nasal septum; R09.81 Nasal congestion; J33.8 Other polyp of sinus; B48.8 Other specified mycoses; Z79.51 Long term (current) use of inhaled steroids; Z79.82 Long term (current) use of aspirin; J45.909 Unspecified asthma, uncomplicated; I10 Essential (primary) hypertension; E78.5 Hyperlipidemia, unspecified; M81.0 Age-related osteoporosis without current pathological fracture; F41.9 Anxiety disorder, unspecified; F12.90 Cannabis use, unspecified, uncomplicated; E66.9 Obesity, unspecified; Z68.33 Body mass index [BMI] 33.0-33.9, adult
CPT/HCPCS: 31267; 31254; 61782; 31276; 30999; 36415; 80048; A9270; J0330; J0690; J1100; J1170; J2250; J2405; J2704; J2710; J3010; J7120

== ENCOUNTER 2022-09-21 23:09 | Outpatient (NON) | payer MEDICARE, MEDICAID, SELFPAY | END 2022-09-21 23:10 | disposition home or self-care (01) | LOC: ANHLAB 23:10 | PROVIDERS: PCP Internal Medicine; Visit Provider Otolaryngology | DX: J32.0 Chronic maxillary sinusitis (principal) | CPT/HCPCS: 87070; 87077; 87181; 87186; 87205 ==

== ENCOUNTER 2022-12-31 10:30 | Outpatient (CLI) | payer MEDICARE, MEDICAID, SELFPAY ==
--- NOTE | ~2022-12-31 | MR_ITS ---
MRI of the cervical spine Clinical History: Cervicalgia Technique: Axial T2-weighted and gradient images, and sagittal T1-weighted, T2-weighted, and STIR amy ges were acquired. Findings: Exam mildly degraded by motion artifact. There is no fracture or subluxations cervical spin e. There is straightening of the normal cervical lordosis. No suspicious bone marrow signal abnormali ty seen. At C2-C3, there is no disc bulge or herniation. No definite spinal canal stenosis, cord compression, or neural foraminal narrowing. At C3-C4, there is disc osteophyte complex which minimally flattens the ventral cord. Bilateral neura l foramina appear preserved. At C4-C5, there is minimal disc osteophyte complex. No definite canal stenosis or cord compression. N o definite neural foraminal narrowing. At C5-C6, there is probable minimal disc osteophyte complex. No definite canal stenosis or cord compr ession. No definite neural foraminal narrowing. At C6-C7, there is no definite disc bulge or herniation. No definite canal stenosis, cord compression , or neural foraminal narrowing. No abnormal signal evident in the spinal cord. Paravertebral soft tissues are unremarkable. Impression: Exam degraded by motion artifact. Probable minimal flattening of the ventral cord at C3-C4 related to disc osteophyte complex. Additional minimal degenerative changes, as above. Reviewed, dictated and finalized at [facility]. Impression: Exam degraded by motion artifact. Probable minimal flattening of the ventral co rd at C3-C4 related to disc osteophyte complex. Additional minimal degenerative changes, as above.
== END 2022-12-31 10:31 | disposition home or self-care (01) ==
PROVIDERS: PCP Internal Medicine
DX: M54.2 Cervicalgia (principal)
CPT/HCPCS: 72141

== ENCOUNTER 2023-03-06 08:25 | Outpatient (CLI) | payer MEDICARE, MEDICAID, SELFPAY ==
--- NOTE | ~2023-03-06 | MR_ITS ---
EXAMINATION: MR lumbar spine wo con DATE: 03/06/2023 09:02 INDICATION: Lumbago. TECHNIQUE: Magnetic resonance imaging (MRI) of the lumbar spine was performed without intravenous con trast. Sequences included sagittal T2-weighted FSE, sagittal T2-weighted FS FSE, sagittal T1-weighted FSE, and axial T2-weighted FSE. COMPARISON: None FINDINGS: There is 15 degrees levoscoliosis of lumbar spine. There is 3 mm retrolisthesis of L1 on L2 and 5 mm anterolisthesis of L4 on L5. There is mild chronic anterior wedging of T9-L1 vertebral bodi es. There are Schmorl's nodes at many levels. There is moderately decreased disc height at L1-L2, mil dly decreased disc height at L3-L4, severely decreased disc height at L4-L5, and mildly decreased dis c height at L5-S1. The following disc levels are specifically discussed: L1-L2: The disc is bulging. There is moderate right and severe left facet joint osteoarthritis. There is mild bilateral neural foraminal stenosis. There is mild central canal stenosis. L2-L3: The disc is bulging. There is moderate bilateral facet joint osteoarthritis. There is mild arabella ateral neural foraminal stenosis. There is mild central canal stenosis. L3-L4: The disc is bulging. There is moderate bilateral facet joint osteoarthritis. There is mild arabella ateral neural foraminal stenosis. There is mild central canal stenosis. L4-L5: The disc is bulging and has an annular fissure. There is severe bilateral facet joint osteoart hritis. There is mild right and moderate left neural foraminal stenosis. There is mild central canal stenosis. L5-S1: The disc does not extend beyond the endplate margin. There is severe bilateral facet joint ost eoarthritis. There is mild right neural foraminal stenosis. There is no central canal stenosis. IMPRESSION: 1. Severe lumbar spondylosis. Reviewed, dictated and finalized at location E.
== END 2023-03-06 08:26 | disposition home or self-care (01) ==
PROVIDERS: PCP Internal Medicine; Visit Provider Nurse Practitioner Family
DX: M54.16 Radiculopathy, lumbar region (principal); M43.06 Spondylolysis, lumbar region
CPT/HCPCS: 72148